=== PATIENT | female | born 1985 | race Caucasian/White ===

== ENCOUNTER 2023-10-15 07:10 | Inpatient (IN) | payer BC ==
[2023-10-15] VITALS (36 sets, daily range): BP systolic 104–154; BP diastolic 55–101
[~2023-10-15] VITALS: Ht 170.2 cm; Wt 87.7 kg
[2023-10-15] MEDS ORDERED: Aspir 8181 MG PO (07:53)
[2023-10-15] MEDS ORDERED: PRENATAL TABLE1 EAC2 PO (07:53)
[2023-10-15 07:55] LABS: BASOPHILS ABSOLUTE AUTO 0.05 K/mm3 (0.00-0.23); BASOPHILS PERCENT AUTO 1 % (0-2); EOSINOPHILS ABSOLUTE AUTO 0.14 K/mm3 (0.00-0.68); EOSINOPHILS PERCENT AUTO 2 % (0-6); Hematocrit 33.8 % (33.0-51.0); Hemoglobin 11.6 g/dL (11.5-16.0); IMMATURE GRAN ABSOLUTE AUTO 0.03 K/mm3 (0.00-0.10); IMMATURE GRAN PERCENT AUTO 0 % (0-1); LYMPHOCYTES ABSOLUTE AUTO 1.98 K/mm3 (0.84-5.20); LYMPHOCYTES PERCENT AUTO 26 % (21-46); MONOCYTES ABSOLUTE AUTO 0.77 K/mm3 (0.16-1.47); MONOCYTES PERCENT AUTO 10 % (4-13); Mean Corpuscular HGB 30.9 pg (26.0-34.0); Mean Corpuscular HGB Conc 34.3 g/dL (31.5-36.5); Mean Corpuscular Volume 90 fL (80-100); NEUTROPHILS ABSOLUTE AUTO 4.68 K/mm3 (1.96-9.15); NEUTROPHILS PERCENT AUTO 61 % (41-73); Platelet Count 159 K/mm3 (150-400); RDW Coefficient Variation 13.2 % (11.7-14.2); Red Blood Cell Count 3.76 M/mm3 (3.80-5.20); White Blood Cell Count 7.65 K/mm3 (4.00-11.30)
[2023-10-16] VITALS (17 sets, daily range): BP systolic 105–138; BP diastolic 57–74
[2023-10-16] MEDS ORDERED: ACET500 PO (16:46)
[2023-10-16] MEDS ORDERED: IBU800 MG PO (16:46)
[2023-10-17 03:02] VITALS: BP 121/69
[2023-10-17 06:18] LABS: Hematocrit 20.6 % (33.0-51.0); Hemoglobin 6.7 g/dL (11.5-16.0); Mean Corpuscular HGB 30.3 pg (26.0-34.0); Mean Corpuscular HGB Conc 32.5 g/dL (31.5-36.5); Mean Corpuscular Volume 93 fL (80-100); Mean Platelet Volume 12.7 fL (9.1-12.4); Platelet Count 128 K/mm3 (150-400); RDW Coefficient Variation 13.6 % (11.7-14.2); RDW Standard Deviation 45.5 fL (35.1-46.3); Red Blood Cell Count 2.21 M/mm3 (3.80-5.20); White Blood Cell Count 11.16 K/mm3 (4.00-11.30)
[2023-10-17 09:15] VITALS: BP 142/72
[2023-10-17 09:35] LABS: Hematocrit 20.3 % (33.0-51.0); Hemoglobin 6.9 g/dL (11.5-16.0)
--- NOTE | 2023-10-17 09:50 | NUR ---
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 Denies feeling symptomatic of anemia, CNM notified and H/H redrawn.
[2023-10-17] MEDS ORDERED: LANOLIN40 GM TOP (10:36)
[2023-10-17] MEDS ORDERED: DOCU100 PO (10:36)
[2023-10-17 11:11] VITALS: BP 130/73
--- NOTE | 2023-10-17 11:20 | NUR ---
No acute changes t/o shift, ID bands matched w/nb. Pt verbalized understanding of instructions and follow up. Pt d/c'd home ambulatory to care of .
== END 2023-10-17 11:27 | disposition home or self-care (01) | DRG 807 ==
LOC: BC 07:10 → OBS 07:10 → BC 07:40
PROVIDERS: ADMIT Advanced Practice Midwife
PROC: 10E0XZZ Delivery of Products of Conception, External Approach (ICD-10-PCS; principal; 2023-10-16)
PROC: 0HQ9XZZ Repair Perineum Skin, External Approach (ICD-10-PCS; 2023-10-16)
PROC: 3E0R3BZ Introduction of Anesthetic Agent into Spinal Canal, Percutaneous Approach (ICD-10-PCS; 2023-10-16)
PROC: 00HU33Z Insertion of Infusion Device into Spinal Canal, Percutaneous Approach (ICD-10-PCS; 2023-10-16)
DX: O63.1 Prolonged second stage (of labor) (principal); Z37.0 Single live birth; Z3A.39 39 weeks gestation of pregnancy; O66.0 Obstructed labor due to shoulder dystocia; O69.1XX0 Labor and delivery complicated by cord around neck, with compression, not applicable or unspecified; O90.81 Anemia of the puerperium; D64.9 Anemia, unspecified; O70.0 First degree perineal laceration during delivery
CPT/HCPCS: 36415; 51702; 85014; 85018; 85025; 85027; 86850; 86900; 86901; A9270; J1885; J2590; J3010; J7120